=== PATIENT | female | born 1980 | race Caucasian/White ===

== ENCOUNTER 2025-04-11 11:14 | Inpatient (IN) | payer OTHER ==
[~2025-04-11] VITALS: Ht 162.6 cm; Wt 76.9 kg
[2025-04-11 12:09] LABS: PLATELET COUNT (AUTO) 378 K/uL (150-450); RED BLOOD CELL COUNT(AUTO) 4.95 MIL/uL (4.00-5.20); RED CELL DISTRIBUTION WIDTH 17.3 % (11.5-14.5); WHITE BLOOD COUNT (AUTO) 8.6 K/uL (4.5-11.0)
[2025-04-11 12:15] LABS: CALCIUM, TOTAL 8.6 mg/dL (8.8-10.5); CREATININE 0.64 mg/dL (0.60-1.30); GLOMERULAR FILTR. RATE CALC > 60 mL/min (>60); GLUCOSE,RANDOM 128 mg/dL (70-110); SODIUM SERUM 138 mmol/L (136-145); UREA NITROGEN, BLOOD 2 mg/dL (7-18)
[2025-04-11] MEDS: ONDANSETRON HCL 4 MG/2 ML VIAL IVP ONE (12:30)
[2025-04-11] MEDS: SODIUM CHLORIDE 0.9% 1,000 ML IV ONE ×2 (12:30→15:08)
[2025-04-11] MEDS ORDERED: ACETAMINOPHEN 325 MG TABLET PO PRN (14:45)
[2025-04-11] MEDS ORDERED: BISACODYL 10 MG RECTAL RECTAL SUPPOSITORY PR PRN (14:45)
[2025-04-11] MEDS ORDERED: ALBUTEROL SULFATE 2.5 MG/0.5 ML NEB SOLUTION NEB PRN (14:45)
[2025-04-11] MEDS ORDERED: MAGNESIUM HYDROXIDE SUSPENSION 30 ML UDCUP PO PRN (14:45)
[2025-04-11] MEDS ORDERED: IPRATROPIUM BROMIDE 0.5 MG/2.5 ML NEB SOLUTION NEB PRN (14:45)
[2025-04-11] MEDS: ONDANSETRON HCL 4 MG/2 ML VIAL IVP PRN (15:09)
[2025-04-11 15:15] VITALS: BP 140/94; PULSE 105; RESP 18; TEMP 98.4; O2SAT 98
[2025-04-11] MEDS: MORPHINE SULFATE 4 MG/ML SYRINGE IVP PRN (15:15)
[2025-04-11] MEDS: HEPARIN SODIUM,PORCINE 5,000 UNITS/ML VIAL SQ SCH (16:00)
[2025-04-11 20:00] VITALS: BP 143/87; PULSE 88; RESP 18; TEMP 98.4; O2SAT 96
[2025-04-11 20:11] LABS: APPEARANCE,URINE HAZY (CLEAR); GLUCOSE, URINE (UA) NEGATIVE (NEGATIVE); LEUKOCYTE ESTERASE ,URINE SMALL (NEGATIVE); NITRATE,URINE NEGATIVE (NEGATIVE); OCCULT BLOOD,URINE NEGATIVE (NEGATIVE); SPECIFIC GRAVITIY, URINE 1.019 (1.003-1.030)
[2025-04-11] MEDS: DOCUSATE SODIUM 100 MG CAPSULE PO SCH (20:12)
[2025-04-11 20:18] LABS: ALCOHOL, URINE DRUG SCREEN NEGATIVE (NEGATIVE); AMPHET/METH SCREEN,URINE NEGATIVE (NEGATIVE); BARBITURATE SCREEN, URINE NEGATIVE (NEGATIVE); CANNABINOID SCREEN,URINE NEGATIVE (NEGATIVE); COCAINE SCREEN,URINE POSITIVE (NEGATIVE); METHADONE SCREEN, URINE NEGATIVE (NEGATIVE)
[2025-04-11 20:20] LABS: SQUAMOUS EPITHELIAL CELL,UR Moderate /LPF (None Seen)
[2025-04-11 20:21] LABS: PH,URINE DRUG SCREEN 6.5 (5.0-8.0)
[2025-04-11] MEDS ORDERED: POTASSIUM CHL 10 MEQ/WATER 50 ML IV PRN (22:30)
[2025-04-11] MEDS: POTASSIUM CHLORIDE 20 MEQ ER TABLET PO PRN (23:14)
[2025-04-12 04:00] VITALS: BP 141/87; PULSE 67; RESP 18; TEMP 98.1; O2SAT 96
[2025-04-12 06:09] LABS: PLATELET COUNT (AUTO) 300 K/uL (150-450); RED BLOOD CELL COUNT(AUTO) 4.16 MIL/uL (4.00-5.20); RED CELL DISTRIBUTION WIDTH 16.7 % (11.5-14.5); WHITE BLOOD COUNT (AUTO) 5.9 K/uL (4.5-11.0)
[2025-04-12 06:42] LABS: ASPARTATE AMINOTRANSFERASE 133 U/L (15-37); CALCIUM, TOTAL 8.2 mg/dL (8.8-10.5); CREATININE 0.66 mg/dL (0.60-1.30); GLOMERULAR FILTR. RATE CALC > 60 mL/min (>60); GLUCOSE,RANDOM 94 mg/dL (70-110); SODIUM SERUM 140 mmol/L (136-145); TOTAL PROTEIN, SERUM 6.9 g/dL (6.4-8.2); UREA NITROGEN, BLOOD 4 mg/dL (7-18)
[2025-04-12] MEDS: PANTOPRAZOLE SODIUM 40 MG DR TABLET PO SCH (08:39)
[2025-04-12 08:43] VITALS: BP 137/88; PULSE 93; RESP 18; TEMP 97.9; O2SAT 95
[2025-04-12] MEDS: HYDROCODONE/ACETAMINOPHEN 5-325 MG TABLET PO PRN (16:21)
[2025-04-12] MEDS: DEXTROSE 5%-LACTATED RINGERS 1,000 ML IV SCH (17:31)
[2025-04-12] MEDS ORDERED: SODIUM CHLORIDE 0.9% 500 ML IV ONE (18:27)
[2025-04-12] MEDS: PIPERACILLIN/TAZO 3.375 GM/D5W 50 ML IV SCH (18:32)
[2025-04-12 20:00] VITALS: BP 141/86; PULSE 64; RESP 18; TEMP 98.4; O2SAT 96
[2025-04-13 04:00] VITALS: BP 146/88; PULSE 62; RESP 18; TEMP 97.5; O2SAT 97
[2025-04-13 06:48] LABS: PLATELET COUNT (AUTO) 278 K/uL (150-450); RED BLOOD CELL COUNT(AUTO) 4.32 MIL/uL (4.00-5.20); RED CELL DISTRIBUTION WIDTH 16.2 % (11.5-14.5); WHITE BLOOD COUNT (AUTO) 6.2 K/uL (4.5-11.0)
[2025-04-13 06:59] LABS: CALCIUM, TOTAL 8.2 mg/dL (8.8-10.5); CREATININE 0.66 mg/dL (0.60-1.30); GLOMERULAR FILTR. RATE CALC > 60 mL/min (>60); GLUCOSE,RANDOM 91 mg/dL (70-110); SODIUM SERUM 136 mmol/L (136-145); UREA NITROGEN, BLOOD 4 mg/dL (7-18)
[2025-04-13 08:54] VITALS: BP 125/80; PULSE 72; RESP 18; TEMP 98.6; O2SAT 99
[2025-04-13 08:57] LABS: ASPARTATE AMINOTRANSFERASE 203.0 U/L (15-37); TOTAL PROTEIN, SERUM 7.0 g/dL (6.4-8.2)
[2025-04-13 09:13] LABS: TROPONIN I-HIGH SENSITIVITY 4 ng/L (<51)
[2025-04-13] MEDS: POTASSIUM CHLORIDE 10% 40 MEQ/30 ML LIQUID UDCUP PO ONE (09:41)
[2025-04-13] MEDS: PANTOPRAZOLE SODIUM 40 MG/VIAL IVP SCH (09:42)
[2025-04-13 14:09] LABS: TROPONIN I-HIGH SENSITIVITY Less Than 4 ng/L (<51)
[2025-04-13] MEDS ORDERED: GADOTERATE MEGLUMINE 10 MMOL/20 ML VIAL IVP ONE (14:13)
[2025-04-13 20:00] VITALS: BP 141/83; PULSE 70; RESP 18; TEMP 98.2; O2SAT 99
[2025-04-13] MEDS: ZOLPIDEM TARTRATE 5 MG TABLET PO PRN (21:32)
[2025-04-14 04:00] VITALS: BP 133/93; PULSE 63; RESP 18; TEMP 98.1; O2SAT 98
[2025-04-14 05:08] LABS: HEPATITIS B CORE IGM Negative (Negative); HEPATITIS C AB (EIA) Non Reactive (Non Reactive)
[2025-04-14 07:35] VITALS: BP 120/85; PULSE 67; RESP 20; TEMP 98.8; O2SAT 96
[2025-04-14 07:56] LABS: PLATELET COUNT (AUTO) 290 K/uL (150-450); RED BLOOD CELL COUNT(AUTO) 4.23 MIL/uL (4.00-5.20); RED CELL DISTRIBUTION WIDTH 16.6 % (11.5-14.5); WHITE BLOOD COUNT (AUTO) 5.5 K/uL (4.5-11.0)
[2025-04-14 08:11] LABS: ASPARTATE AMINOTRANSFERASE 220 U/L (15-37); CALCIUM, TOTAL 8.6 mg/dL (8.8-10.5); CREATININE 0.62 mg/dL (0.60-1.30); GLOMERULAR FILTR. RATE CALC > 60 mL/min (>60); GLUCOSE,RANDOM 84 mg/dL (70-110); SODIUM SERUM 136 mmol/L (136-145); TOTAL PROTEIN, SERUM 7.3 g/dL (6.4-8.2); UREA NITROGEN, BLOOD 3 mg/dL (7-18)
[2025-04-14] MEDS ORDERED: LEVO750T68 PO (14:03)
== END 2025-04-14 15:51 | DRG 392 ==
LOC: EMS 11:17 → EDH 13:13 → 6S 14:13
PROVIDERS: ADMIT Internal Medicine; ATTEND Internal Medicine
DX: A05.9 Bacterial foodborne intoxication, unspecified (principal); E87.6 Hypokalemia; K52.89 Other specified noninfective gastroenteritis and colitis; R73.9 Hyperglycemia, unspecified
CPT/HCPCS: 71045; 74183; 76705; 80048; 80053; 80074; 80076; 80307; 81001; 83010; 83690; 84484; 85025; 87077; 87081; 87086; 87186; 93005; 96361; 96374; 99285; J1644; J2270; J2405; J2470; J2543; J7030; J7040; 36415-L1; 36415-TC